=== PATIENT | female | born 1955 | race Caucasian/White ===

== ENCOUNTER 2018-03-21 00:50 | Inpatient (IN) | payer MEDICARE, OTHER ==
[2018-03-20 15:19] LABS: INR 0.97
[~2018-03-21] VITALS: Ht 162.6 cm; Wt 107.5 kg
[2018-03-21] VITALS (13 sets, daily range): BP systolic 105–146; BP diastolic 64–92
[~2018-03-21 00:50] MED LIST: AMLO-96 PO; DIPH-464 PO; HYDR-385 PO; LOSA-57 PO; MULT-1381 PO
[2018-03-21] MEDS ORDERED: ceFAZolin(*) 2GM/D5W 50ML 50 ML IVPB ONE (11:45)
[2018-03-21] MEDS ORDERED: BACITRACIN 50000 UNIT/VIAL 100,000 UNIT in NS 0.9% 3000 ML IRRIGATION BAG 3,000 ML IR ONE (11:45)
[2018-03-21] MEDS ORDERED: PREGABALIN 150 MG CAPSULE PO ONE (11:45)
[2018-03-21] MEDS ORDERED: LIDOCAINE/SOD BICARB 8.4% SYR ID ONE (11:45)
[2018-03-21] MEDS ORDERED: cloNIDine EPIDUR INJ 100MCG/ML 40 MCG, ROPIVACAINE 0.5% 20 ML VIAL 25 ML, EPINEPHrine H... EPI ONE (11:45)
[2018-03-21] MEDS ORDERED: NORMOSOL R SOLN(*) 1000 ML BAG 1,000 ML IV PRN (11:45)
[2018-03-21] MEDS ORDERED: FAMOTIDINE 20 MG TAB PO ONE (11:45)
[2018-03-21] MEDS ORDERED: MIDAZOLAM 2 MG/2 ML VIAL IVP PRN (11:45)
[2018-03-21] MEDS ORDERED: TRANEXAMIC AC 1000 MG/10ML SDV 1,000 MG in DEXTROSE 5% 50 ML BAG 50 ML IV ONE (11:45)
[2018-03-21] MEDS ORDERED: CELECOXIB 200 MG CAP PO ONE (11:45)
[2018-03-21] MEDS ORDERED: ACETAMINOPHEN 500 MG TAB PO ONE (11:45)
[2018-03-21] MEDS ORDERED: ONDANSETRON 4 MG/2 ML VIAL ONE ×2 (12:59→14:25)
[2018-03-21] MEDS ORDERED: PROPOFOL EMUL(*) 10MG/ML 20 ML 20 ML ONE (12:59)
[2018-03-21] MEDS ORDERED: DEXAMETHASONE SOD PHOS 10MG/ML ONE (12:59)
[2018-03-21] MEDS ORDERED: diphenhydrAMINE 25 MG CAP PO PRN (14:40)
[2018-03-21] MEDS ORDERED: MAGNESIUM HYDROXIDE* 30ML UDCP PO PRN (14:40)
[2018-03-21] MEDS ORDERED: FLUSH 10 ML SYR IVP PRN (14:40)
[2018-03-21] MEDS ORDERED: ONDANSETRON 4 MG/2 ML VIAL IVP PRN (14:40)
[2018-03-21] MEDS ORDERED: MAGNESIUM CITRATE 300 ML BTL PO PRN (14:40)
[2018-03-21] MEDS ORDERED: PROMETHAZINE 25 MG/ML 1 ML AMP IVP PRN (14:40)
[2018-03-21] MEDS ORDERED: diphenhydrAMINE 50 MG/ML VIAL IVP PRN (14:40)
[2018-03-21] MEDS ORDERED: HYDROmorphone HCL 2 MG/ML SDV IVP PRN (14:40)
[2018-03-21] MEDS ORDERED: LR 1000 ML BAG 1000 ML IV PRN (14:40)
[2018-03-21] MEDS ORDERED: ZOLPIDEM TARTRATE 5 MG TAB PO PRN (14:40)
[2018-03-21] MEDS ORDERED: BISACODYL 10 MG SUPP PR PRN (14:40)
--- NOTE | 2018-03-21 14:52 | RADIOLOGY IMAGING REPORT ---
FACILITY: [facility] PATIENT NAME: Noemi Aggarwal : 1955 MR: [id number] V: [id number] EXAM DATE: ORDERING PHYSICIAN: NADIA FREEMAN TECHNOLOGIST: Location: [facility] - [place] Patient: Noemi Aggarwal : 1955 Visit/Account:[id number] Date of Sevice: 03/21/2018 HIP IN OR RIGHT, PELVIS History: Status post right hip arthroplasty. Comparison study: None. Findings: There has been recent revision of a right hip arthroplasty. There is no fracture related to revision of the prosthesis. Subcutaneous air is related to recent surgery. There are prominent findings of osteoarthrosis involving the left hip. There are minimal degenerative changes involve the sacroiliac joints. IMPRESSION: 1. Revision of right total hip prosthesis. No resultant fracture. 2. Advanced findings of osteoarthrosis involving the left hip. Report Dictated By: Quique Jaffe MD at 03/21/2018 2:46 PM Report E-Signed By: Quique Jaffe MD at 03/21/2018 2:48 PM WSN:[email or web address]
--- NOTE | 2018-03-21 14:52 | RADIOLOGY IMAGING REPORT ---
FACILITY: [facility] - [place] PATIENT NAME: Noemi Aggarwal : 1955 MR: [id number] V: [id number] EXAM DATE: ORDERING PHYSICIAN: NADIA FREEMAN TECHNOLOGIST: Location: [facility] - [place] Patient: Noemi Aggarwal : 1955 Visit/Account:[id number] Date of Sevice: 03/21/2018 HIP IN OR RIGHT, PELVIS History: Status post right hip arthroplasty. Comparison study: None. Findings: There has been recent revision of a right hip arthroplasty. There is no fracture related to revision of the prosthesis. Subcutaneous air is related to recent surgery. There are prominent findings of osteoarthrosis involving the left hip. There are minimal degenerative changes involve the sacroiliac joints. IMPRESSION: 1. Revision of right total hip prosthesis. No resultant fracture. 2. Advanced findings of osteoarthrosis involving the left hip. Report Dictated By: Quique Jaffe MD at 03/21/2018 2:46 PM Report E-Signed By: Quique Jaffe MD at 03/21/2018 2:48 PM WSN:[email or web address]
--- NOTE | 2018-03-21 15:56 | OPERATIVE REPORT 1 ---
EVENT DATE: March 21, 2018 SURGEON: Tiago Huff MD ANESTHESIOLOGIST: Geovanny Rubio MD ANESTHESIA: General plus spinal. AUTOMATION QA ANALYST: Imtiaz Mckee PA-C PREOPERATIVE DIAGNOSIS Right hip osteoarthritis. POSTOPERATIVE DIAGNOSIS Right hip osteoarthritis. PROCEDURE PERFORMED Right total hip arthroplasty. FINDINGS The patient had a significant amount of arthritic change associated with her hip, but it was amenable for total hip replacement. ESTIMATED BLOOD LOSS About 200 mL. DRAINS None. COMPLICATIONS None. TOURNIQUET TIME Not applicable. IMPLANTS USED Vonnie 54 trabecular metal cup with a neutral liner to accommodate a 36, +0 ceramic head, a 6 standard stem, and then one double hole plug and three screw hole plugs. SPECIMENS None. INDICATIONS AND HISTORY This patient is a 63-year-old female who presented to my clinic for evaluation of right hip pain going on for some time. She continued to have pain and problems despite conservative management, and so she wanted to go ahead with the total knee arthroplasty today, March 21, 2018. The risks and benefits were discussed with her, and informed consent was obtained. We talked specifically about dislocations, leg length discrepancy, incomplete pain relief, and issues associated with the posterior approach. Then, we also discussed the general aspects of just having a repair procedure or surgery, and after discussion of those risks and benefits, informed consent was obtained at the last clinic visit. DESCRIPTION OF PROCEDURE As the patient was brought in the operating room, she and the procedure were both verified. She was placed supine on the operative table and induced and intubated by Anesthesia after being given a spinal. She was then turned into the lateral decubitus position with the right hip towards the ceiling, and then the right hip was prepped and draped in the usual fashion. A timeout was observed verifying the correct patient and procedure. The standard incision was made over the posterior aspect and posterolateral aspect of the femur and posterior thigh. It was taken through the skin and subcutaneous tissue, and then I was able to go through to the gluteal musculature. Once I was able to cut into the gluteal musculature and into the IT band, I was then able to expose to the short external rotators in the posterior aspect of the leg. I was then able to cut through the musculature in this area without any major difficulty and then cut the piriformis and tagged it for later repair. This was then followed by dislocation of the hip after cutting the capsule in two separate incisions and then cutting the femoral neck without any major difficulty. I was then able to gain access to the acetabulum where I put retractors anterior and inferior and then put another superior after I removed the labrum. I then removed the large osteophyte in the inferior portion of the acetabular socket, and I was able to ream the acetabular socket starting with a 47 [address] reamer all the way up to a 53 mm reamer, which had good rim fit associated with this, and so therefore, a 54 mm cup was chosen. Once I was able to get the 54 cup stabilized and placed, it had good fit associated with it, and so therefore, we put in the dome hole plug and the screw hole plugs without any difficulty. I then put in the liner and irrigated with copious amounts of saline, which we did throughout the case with pulsatile lavage. I then was able to turn attention back to the femur where I was able to take the box cutting osteotome, then use the canal finder, and then followed by the lateralizing reamer. Once I was able to get the lateralizing reamer into good position, I then was able to start broaching. We broached from a [address] up to a 6 stem. The stem had good fit associated with it. She had very thin bone up top, so we decided not to push anything further. I then put on the standard head and neck and then relocated the hip. It had excellent range of motion and only dislocated with the hip flexed at about 70 or 80 degrees of internal rotation, and so therefore, we then took an intraoperative x-ray, found the leg lengths were equal, and everything was in good position. So therefore, this was the accepted aspect of the cup and stem. After irrigating with copious amounts of saline, I then removed the other stem and then put in the final stem which was a 6 with a zero/36 head and then relocated it without any difficulty. I then was able to put it through a range of motion. There were no signs of problems or issues associated with stability. I then closed the capsule using a heavy Ethibond suture, then followed this by repairing the piriformis to the posterior aspect of the femur through drill holes and then irrigated again, put the pain cocktail in the joint and around the joint itself, and then closed the IT band and gluteal musculature with #1 Stratafix sutures, followed by 2-0 Vicryl in the deep fat layer, then a 2-0 Stratafix in the subcutaneous layer, and a subcuticular 4-0 running Monocryl with Steri-Strips and a dressing on top. Then, I put the standard hip dressing on. The patient was awakened, extubated, and transferred to PACU in stable condition. APRIL
--- NOTE | 2018-03-21 16:31 | Hospitalist Consultation ---
History of Present Illness Requesting Physician Dr. Huff Reason for Consult Medical Management Chief Complaint s/p right total hip replacement History of Present Illness She was admitted s/p right total hip replacement. It is reported the surgery went well and without complication. History Problems: (1) Hypertension Status: Chronic Home Meds Reported Medications Diphenhydramine Hcl (DIPHENHYDRAMINE HCL) 25 Mg Capsule, 1-2 TAB PO PRN, CAPSULE 03/16/18 Multivitamin (ONCE DAILY) 1 Each Tablet, 1 EACH PO DAILY 03/16/18 Hydrocodone Bit/Acetaminophen (HYDROCODON-ACETAMINOPHEN 5-325) 1 Each Tablet, 1 EACH PO PRN, TAB 03/16/18 Amlodipine Besylate (AMLODIPINE BESYLATE) 5 Mg Tablet, 2 TAB PO QDAY, TAB 03/16/18 Losartan/Hydrochlorothiazide (LOSARTAN-HCTZ 100-12.5 MG TAB) 1 Each Tablet, 1 EACH PO QDAY 03/16/18 Allergies: Coded Allergies: No Known Drug Allergies (Unverified , 03/16/18) Patient History: FH: emphysema FATHER Myasthenia gravis BROTHER OR SISTER BROTHER OR SISTER Hx Smoking: No Smoking Status: Never Smoker Caffeine Intake: Soda Caffeine/Cups Per Day: occassionally, 20 oz Hx Alcohol Use: No Hx Substance Use Disorder: No Review of Systems All Systems Reviewed/Normal: Yes, Except as Noted Exam Vital Signs Vital Signs Date Time Temp Pulse Resp B/P (MAP) Pulse Ox O2 Delivery O2 Flow Rate FiO2 03/21/18 16:15 77 16 97 03/21/18 10:30 98.7 136/90 (105) Room Air General Appearance: Alert, Awake, No Acute Distress, Afebrile Neuro: No Gross deficits Cardiovascular: Regular Rate and Rhythm Respiratory: No Respiratory Distress, Clear to Auscultation Psych: Alert & Oriented X3, Appropriate Mood & Affect Assessment and Plan Problems: (1) Status post total hip replacement, right Status: Acute Assessment & Plan: Followed by Dr. Huff. She will be placed on Aspirin for DVT prophylaxis. She has no history of DVT or PE. (2) Hypertension Status: Chronic Assessment & Plan: She is on chronic treatment with Amlodipine, Losartan, and Hydrochlorothiazide. The Amlodipine and Losartan have been restarted with hold parameters. Venous Thromboembolism Antithrombotics Is Pt On Any Antithrombotics?: No Problem Qualifiers (1) Hypertension: Hypertension type: essential hypertension Qualified Codes: I10 - Essential (primary) hypertension ZAY JUÁREZ HYDROGEOLOGY PROFESSOR Mar 21, 2018 16:31
[2018-03-21] MEDS ORDERED: ceFAZolin(*) 2GM/D5W 50ML 50 ML IVPB SCH (20:00)
[2018-03-21] MEDS ORDERED: ASPIRIN 325 MG TAB PO SCH (21:00)
[2018-03-22 03:34] VITALS: BP 136/71
[2018-03-22] MEDS ORDERED: ceFAZolin(*) 2GM/D5W 50ML 50 ML IVPB SCH (06:00)
[2018-03-22 07:49] VITALS: BP 107/60
[2018-03-22] MEDS ORDERED: LOSARTAN POTASSIUM 50 MG TAB PO SCH (09:00)
[2018-03-22] MEDS ORDERED: amLODIPine BESYL(*) 5 MG TAB PO SCH (09:00)
[2018-03-22] MEDS ORDERED: ASPI-757 PO (09:21)
--- NOTE | 2018-03-22 09:22 | Hospitalist Progress Note ---
Subjective Progress Notes Subjective She has no complaints this morning. She had no acute events overnight. Patient Complains of: Cardiovascular: No: Chest Pain Respiratory: No: Shortness of Breath Physical Exam Vital Signs Date Time Temp Pulse Resp B/P (MAP) Pulse Ox O2 Delivery O2 Flow Rate FiO2 03/22/18 08:21 75 03/22/18 07:51 Nasal Cannula 1.0 03/22/18 07:49 98.6 74 12 107/60 (76) Intake and Output 03/22/18 06:59 Intake Total 1615.7 ml Output Total 200 ml Balance 1415.7 ml IV Total 1615.7 ml Output Estimated Blood Loss 200 ml # Voids 3 General Appearance: Alert, Awake, No Acute Distress, Afebrile Neuro: No Gross deficits Cardiovascular: Regular Rate and Rhythm Respiratory: No Respiratory Distress, Clear to Auscultation Psych: Alert & Oriented X3, Appropriate Mood & Affect Result Diagram: 03/22/18 0541 Assessment and Plan Problems: (1) Status post total hip replacement, right Status: Acute Assessment & Plan: Followed by Dr. Huff. She will be placed on Aspirin for DVT prophylaxis. She has no history of DVT or PE. (2) Hypertension Status: Chronic Assessment & Plan: She is on chronic treatment with Amlodipine, Losartan, and Hydrochlorothiazide. The Amlodipine and Losartan have been restarted with hold parameters. Exam Sepsis Risk: No Definite Risk Problem Qualifiers (1) Hypertension: Hypertension type: essential hypertension Qualified Codes: I10 - Essential (primary) hypertension ZAY JUÁREZ PANTOGRAPHER Mar 22, 2018 09:22
[2018-03-22 12:42] VITALS: Ht 162.6 cm; Wt 107.5 kg
== END 2018-03-22 12:42 | disposition home or self-care (01) | DRG 470 ==
LOC: OR 00:50 → MED 17:44
PROVIDERS: ADMIT Orthopaedic Surgery; ATTEND Orthopaedic Surgery
PROC: 0SR904Z Replacement of Right Hip Joint with Ceramic on Polyethylene Synthetic Substitute, Open Approach (ICD-10-PCS; principal; 2018-03-21 12:29)
DX: M16.11 Unilateral primary osteoarthritis, right hip (principal); Z68.41 Body mass index [BMI] 40.0-44.9, adult; I10 Essential (primary) hypertension; E66.9 Obesity, unspecified; K21.9 Gastro-esophageal reflux disease without esophagitis
CPT/HCPCS: 36415; 72170; 85014; 85018; 85610; 86850; 86900; 86901; 97161; 97165; C1713; C1776; J0171; J0690; J0735; J1100; J1885; J2250; J2405; J2704; J2795; J7050; J7060

== ENCOUNTER 2018-12-12 01:31 | Inpatient (IN) | payer MEDICARE, OTHER ==
[2018-03-22 12:42] VITALS: Ht 162.6 cm; Wt 111.1 kg
[2018-12-11 14:17] LABS: INR 0.96
[~2018-12-12] VITALS: Ht 162.6 cm; Wt 111.1 kg
[2018-12-12] VITALS (10 sets, daily range): BP systolic 123–145; BP diastolic 70–84
[~2018-12-12 01:31] MED LIST changes: +AMLO-125 PO; -AMLO-96 PO; +ASPI-757 PO; +METO25TA23 PO
[2018-12-12] MEDS ORDERED: fentaNYL CITR 100 MCG/2 ML AMP ONE (10:55)
[2018-12-12] MEDS ORDERED: PROPOFOL EMUL(*) 10MG/ML 20 ML 20 ML ONE (10:56)
[2018-12-12] MEDS ORDERED: LIDOCAINE 2% IV 100 MG/5ML SYR ONE (10:56)
[2018-12-12] MEDS ORDERED: FAMOTIDINE 20 MG TAB PO ONE (13:15)
[2018-12-12] MEDS ORDERED: NORMOSOL R SOLN(*) 1000 ML BAG 1,000 ML IV PRN (13:15)
[2018-12-12] MEDS ORDERED: CELECOXIB 200 MG CAP PO ONE (13:15)
[2018-12-12] MEDS ORDERED: ROPIVACAINE/EPI/CLONIDINE/KET 50 ML SYRINGE INJ ONE (13:15)
[2018-12-12] MEDS ORDERED: PREGABALIN 150 MG CAPSULE PO ONE (13:15)
[2018-12-12] MEDS ORDERED: ACETAMINOPHEN 500 MG TAB PO ONE (13:15)
[2018-12-12] MEDS ORDERED: ceFAZolin(*) 2GM/D5W 50ML 50 ML IVPB ONE (13:15)
[2018-12-12] MEDS ORDERED: MIDAZOLAM 2 MG/2 ML VIAL IVP PRN (13:15)
[2018-12-12] MEDS ORDERED: LIDOCAINE/SOD BICARB 8.4% SYR ID ONE (13:15)
[2018-12-12] MEDS ORDERED: TRANEXAMIC AC 1000 MG/10ML SDV 1,000 MG in DEXTROSE 5% 50 ML BAG 50 ML IV ONE (13:15)
[2018-12-12] MEDS ORDERED: BACITRACIN 50000 UNIT/VIAL 100,000 UNIT in NS 0.9% 3000 ML IRRIGATION BAG 3,000 ML IR ONE (13:15)
[2018-12-12] MEDS ORDERED: DEXAMETHASONE SOD PHOS 10MG/ML ONE (14:09)
[2018-12-12] MEDS ORDERED: ONDANSETRON 4 MG/2 ML VIAL ONE (14:16)
[2018-12-12] MEDS ORDERED: KETAMINE HCL 200 MG/20 ML MDV ONE (14:28)
--- NOTE | 2018-12-12 16:47 | OPERATIVE REPORT 1 ---
EVENT DATE: December 12, 2018 SURGEON: Tiago Huff MD ANESTHESIOLOGIST: Galo Hood MD ANESTHESIA: General LMA anesthesia plus spinal. DIRECTOR PARK: David Summers PA-C PREOPERATIVE DIAGNOSIS Left hip osteoarthritis. POSTOPERATIVE DIAGNOSIS Left hip osteoarthritis. PROCEDURE PERFORMED Left total hip arthroplasty. FINDINGS The patient had a significant amount of arthritic changes associated with her hip but was amenable for a total hip replacement. ESTIMATED BLOOD LOSS 250 mL. DRAINS None. SPECIMENS None. COMPLICATIONS None. TOURNIQUET TIME Nonapplicable. IMPLANTS USED Vonnie 52 cluster hole shell with trabecular metal with a neutral liner for a 36 head and a 6 standard stem with 36 plus 0 head, one dome hole plug and 3 screw hole plugs in the acetabulum. INDICATIONS AND HISTORY This patient is a 63-year-old female that presented to my clinic for evaluation of bilateral hip arthritis and irritation. We had done a right total hip on her previously and she wanted to go ahead with the left total hip today 12/12/2018. The risk and benefits were discussed with the patient and informed consent was obtained at the last clinic visit. We talked about specifically dislocation, leg-length discrepancy and also other complications associated with just joint replacement surgery. She said she understood those and informed consent was obtained at the last clinic visit. DESCRIPTION OF PROCEDURE As the patient was brought in the operating room, she and the procedure were both verified. She was given spinal by Anesthesia and then induced and intubated and then turned in the lateral decubitus position with the left hip towards the ceiling. The left hip was then prepped and draped in the usual fashion and a timeout was observed verifying the correct patient and procedure. The standard incision was made over the posterior lateral aspect of the hip. It was taken through the skin and subcutaneous tissue until I was able to get down to the IT band and the gluteal musculature. I was then able to split that apart and go down to the lateral aspect of the hip. Once I identified the short external rotators and then cut the piriformis, I then tagged it for later repair, and cut a little bit more of the short external rotators making it amenable for dislocation. I then cut the capsule with a high cut in a T-shape fashion, high up on the head. I then dislocated the hip without any major difficulty and then cut the femoral neck without any major issues in accordance with the Vonnie system. I then was able to put retractors around the acetabulum in about 360-degrees for exposure. We then cut out the labrum and then was able to cut the ligament of teres in the middle portion of the acetabulum also. Once I did this, I was then able to commence reaming. We started with a 41 [address] reamer all the way up to a 51 mm reamer which had a good rim fit, and so therefore a 52 cluster hole trabecular metal shell acetabulum was utilized. I put this in place and made sure it was down and then put in the dome hole and screw hole plugs and then put in the liner without any major issues. Once I was able to do that, I was then able to turn attention to the femur. Once on the femur, I was able to put in the box-cutting osteotome, followed by the lateralizing reamer and the canal finder, making sure that everything was in good position. I then started broaching with a 4 and made it up to a 6. The 6 fit pretty well and so therefore we then put on a standard head and neck, relocated the hip. It had good stability associated with it and so therefore we took an intraoperative x-ray and it showed that everything was in good position and the leg lengths were pretty much equal. I then irrigated with copious amounts of saline which I had throughout the case utilizing Irrisept and bacitracin and pulse lavage. This was then followed by removal of all of the trial components and then putting in the final components with a 6 stem with the 36 standard head. We then put it through a range of motion again and made sure there was no signs of instability or problems associated with it. I then closed the posterior capsule first with a heavy Ethibond and then this was followed by closure of the piriformis through drill holes in the posterior aspect of the femur, and then closed the gluteal musculature with a #2 Quil. This was then followed by 2-0 Vicryl in the fat and then a 2-0 Stratafix in the subcutaneous tissue and a subcuticular 4-0 running Monocryl. We put the pain cocktail in during the case and then the wound was dressed with Steri-Strips, gauze 4 x 4s and a soft dressing. The patient was awakened, extubated and transferred to the PACU in stable condition. APRIL
[2018-12-12] MEDS ORDERED: diphenhydrAMINE 25 MG CAP PO PRN (17:00)
[2018-12-12] MEDS ORDERED: ONDANSETRON 4 MG/2 ML VIAL IVP PRN (17:00)
[2018-12-12] MEDS ORDERED: BISACODYL 10 MG SUPP PR PRN (17:00)
[2018-12-12] MEDS ORDERED: FLUSH 10 ML SYR IVP PRN (17:00)
[2018-12-12] MEDS ORDERED: ZOLPIDEM TARTRATE 5 MG TAB PO PRN (17:00)
[2018-12-12] MEDS ORDERED: HYDROmorphone HCL 2 MG/ML SDV IVP PRN (17:00)
[2018-12-12] MEDS ORDERED: diphenhydrAMINE 50 MG/ML VIAL IVP PRN (17:00)
[2018-12-12] MEDS ORDERED: PROMETHAZINE 25 MG/ML 1 ML AMP IVP PRN (17:00)
[2018-12-12] MEDS ORDERED: LR 1000 ML BAG 1000 ML IV PRN (17:00)
[2018-12-12] MEDS ORDERED: MAGNESIUM CITRATE 300 ML BTL PO PRN (17:00)
[2018-12-12] MEDS ORDERED: MAGNESIUM HYDROXIDE* 30ML UDCP PO PRN (17:00)
--- NOTE | 2018-12-12 17:19 | RADIOLOGY IMAGING REPORT ---
FACILITY: [facility] PATIENT NAME: Noemi Aggarwal : 1955 MR: [id number] V: [id number] EXAM DATE: ORDERING PHYSICIAN: NADIA FREEMAN TECHNOLOGIST: Location: [facility] Patient: Noemi Aggarwal : 1955 Visit/Account:[id number] Date of Sevice: 12/12/2018 Technique: HIP IN OR LEFT, PELVIS HISTORY: LEFT TOTAL HIP ARTHROPLASTY Comparison studies: March 21, 2018 FINDINGS: There is no acute fracture. Bilateral hip arthroplasties are noted with interval placement of a left hip arthroplasty. There is gross anatomic alignment. IMPRESSION: 1. Left hip arthroplasty without evidence of acute hardware complication. Report Dictated By: Harshil Rivera DO at 12/12/2018 5:07 PM Report E-Signed By: Harshil Rivera DO at 12/12/2018 5:09 PM WSN:[id number]
--- NOTE | 2018-12-12 17:19 | RADIOLOGY IMAGING REPORT ---
FACILITY: [facility] [place] PATIENT NAME: Noemi Aggarwal : 1955 MR: [id number] V: [id number] EXAM DATE: ORDERING PHYSICIAN: NADIA FREEMAN TECHNOLOGIST: Location: [facility] - [place] Patient: Noemi Aggarwal : 1955 Visit/Account:[id number] Date of Sevice: 12/12/2018 Technique: HIP IN OR LEFT, PELVIS HISTORY: LEFT TOTAL HIP ARTHROPLASTY Comparison studies: March 21, 2018 FINDINGS: There is no acute fracture. Bilateral hip arthroplasties are noted with interval placement of a left hip arthroplasty. There is gross anatomic alignment. IMPRESSION: 1. Left hip arthroplasty without evidence of acute hardware complication. Report Dictated By: Harshil Rivera DO at 12/12/2018 5:07 PM Report E-Signed By: Harshil Rivera DO at 12/12/2018 5:09 PM WSN:[id number]
--- NOTE | 2018-12-12 19:43 | Hospitalist Progress Note ---
Subjective Progress Notes Subjective No cp/sob. EBL 150cc. 1800cc of crystalloid, TXA and dexamethasone given intra-op. Physical Exam Vital Signs Date Time Temp Pulse Resp B/P (MAP) Pulse Ox O2 Delivery O2 Flow Rate FiO2 12/12/18 18:32 96.6 75 16 126/70 (88) 96 Nasal Cannula 2.0 General Appearance: Alert, Awake, No Acute Distress Cardiovascular: Regular Rate and Rhythm Respiratory: Clear to Auscultation Extremities: No Edema Assessment and Plan Problems: (1) Status post hip replacement Status: Acute Assessment & Plan: No CV/pulmonary issues. The patient denies a h/o DVT/PE. She will be on ASA 325mg a day for 30 for blood clot prevention. (2) Hypertension Status: Chronic Assessment & Plan: Continue chronic Toprol and Losartan/HCTZ with parameters. (3) Severe obesity (BMI >= 40) Status: Chronic Problem Qualifiers (1) Status post hip replacement: Laterality: left Qualified Codes: Z96.642 - Presence of left artificial hip joint PARKER BEARD MD December 12, 2018 19:43
[2018-12-12] MEDS ORDERED: ASPIRIN 325 MG TAB PO SCH (21:00)
[2018-12-12] MEDS: ceFAZolin(*) 2GM/D5W 50ML 50 ML IVPB SCH (21:37)
[2018-12-12] MEDS: oxyCODON/ACET (*)5/325MG (CII) 1 TAB TAB PO PRN ×2 (21:37→22:30)
[2018-12-13] VITALS: BP 125/80
[2018-12-13] MEDS: oxyCODON/ACET (*)5/325MG (CII) 1 TAB TAB PO PRN ×2 (02:35→08:23)
[2018-12-13 02:36] VITALS: BP 117/64
[2018-12-13] MEDS: ceFAZolin(*) 2GM/D5W 50ML 50 ML IVPB SCH (05:18)
[2018-12-13 07:47] VITALS: BP 108/62
[2018-12-13] MEDS ORDERED: ASPI-757 PO (08:07)
[2018-12-13] MEDS ORDERED: LOSARTAN POTASSIUM 50 MG TAB PO SCH ×2 (09:00)
[2018-12-13] MEDS ORDERED: HYDROCHLOROTHIAZIDE 25 MG TAB PO SCH ×2 (09:00)
[2018-12-13] MEDS ORDERED: METOPROLOL SUCC XL 25 MG TABCR PO SCH (09:00)
--- NOTE | 2018-12-13 09:06 | Hospitalist Progress Note ---
Subjective Progress Notes Subjective She was admitted s/p hip replacement. She has no complaints this morning. She had no acute events overnight. Patient Complains of: Cardiovascular: No: Chest Pain Respiratory: No: Shortness of Breath Physical Exam Vital Signs Date Time Temp Pulse Resp B/P (MAP) Pulse Ox O2 Delivery O2 Flow Rate FiO2 12/13/18 07:47 97.3 59 16 108/62 (77) 93 Nasal Cannula 2.0 Intake and Output 12/13/18 07:00 Intake Total 3650 ml Output Total 150 ml Balance 3500 ml Intake Oral 1650 ml IV Total 2000 ml Output Estimated Blood Loss 150 ml # Voids 3 General Appearance: Alert, Awake, No Acute Distress, Afebrile Neuro: No Gross deficits Cardiovascular: Regular Rate and Rhythm Respiratory: No Respiratory Distress, Clear to Auscultation GI: Soft and Non-Tender Psych: Alert & Oriented X3, Appropriate Mood & Affect Result Diagram: 12/13/18 0650 Assessment and Plan Problems: (1) Status post hip replacement Status: Acute Assessment & Plan: No CV/pulmonary issues. The patient denies a h/o DVT/PE. She will be on ASA 325mg a day for 30 for blood clot prevention. (2) Hypertension Status: Chronic Assessment & Plan: Continue chronic Toprol and Losartan/HCTZ with parameters. (3) Severe obesity (BMI >= 40) Status: Chronic Exam Sepsis Risk: No Definite Risk Problem Qualifiers (1) Status post hip replacement: Laterality: left Qualified Codes: Z96.642 - Presence of left artificial hip joint (2) Hypertension: Hypertension type: essential hypertension Qualified Codes: I10 - Essential (primary) hypertension ZAY JUÁREZP December 13, 2018 09:06
[2018-12-13 11:27] VITALS: BP 125/66
[2018-12-13] MEDS ORDERED: OXYC-865 PO (11:27)
--- NOTE | 2018-12-13 12:29 | NUR ---
Occupational Therapy Impression Pt alert and agreeable to OT tx. SpO2 WNL on room air throughout tx. Reporting no pain. Recalling 2/3 posterior hip precautions and adhering to precautions throughout ADLs. Pt reports daughter will stay with her and assist with all ADLs/IADLs. Declines education for LB AE, reports daughter will assist with LB dressing. Pt has a toilet riser, 4WW, and grab bars in shower. Pt has met all skilled OT goals. Reports no further questions/concerns for OT at this time. Ready for discharge when medically appropriate and PT goals are met. Occupational Therapy Goals Patient's Goal
--- NOTE | 2018-12-13 13:45 | NUR ---
Physical Therapy Impression Pt demonstrated good mobility, managable pain, and understanding of precautions. Pt transfered sit<>stand w/CGA x1 out of raised chair.Pt ambulated 120 feet w/ Four wheeled walker and CGA of 1. Pt performed 1 step w/ assistance of railing and holding PT hand. Pt required CGA and verbal cues for foot sequencing.Pt demonstated independence with sit to supine and followed all hip precautions. Once in bed, PT reviewed therex with Pt who demonstrated printed exercises and stated understanding. Pt was left supine in bed with all needs met and call light in reach. Pt would benefit from OP Pt to gain strength/ROM to reach previous functional levels. Pt ready for discharge when medically clear. Physical Therapy Goals Patient's Goals
--- NOTE | 2018-12-13 13:46 | NUR ---
This Physical Therapist or Liner Installer was present for the entire physical therapy session directing the services, making the skilled judgement, and was not engaged in treating another patient or doing another task at the same time as the treatment session. Addendum: 12/13/18 at 1346 by JENNIFER ORDOÑEZ PT Amended: Links added.
== END 2018-12-13 12:10 | disposition home or self-care (01) | DRG 470 ==
LOC: OR 01:31 → MED 18:30
PROVIDERS: ADMIT Orthopaedic Surgery; ATTEND Orthopaedic Surgery
PROC: 0SRB02A Replacement of Left Hip Joint with Metal on Polyethylene Synthetic Substitute, Uncemented, Open Approach (ICD-10-PCS; principal; 2018-12-12 13:41)
DX: M16.12 Unilateral primary osteoarthritis, left hip (principal); Z68.41 Body mass index [BMI] 40.0-44.9, adult; I10 Essential (primary) hypertension; E66.8 Other obesity
CPT/HCPCS: 36415; 72170; 85014; 85018; 85610; 86850; 86900; 86901; 97161; 97165; C1713; C1776; J0690; J1100; J1170; J2001; J2250; J2405; J2704; J3010; J3490; J7060; J7120